=== PATIENT | male | born 1970 | race Caucasian/White ===

== ENCOUNTER 2018-03-11 18:25 | Emergency (ER) | payer BC ==
[~2018-03-11] VITALS: Ht 165.1 cm; Wt 73.0 kg
[2018-03-11 18:27] VITALS: Ht 165.1 cm; Wt 73.0 kg
[2018-03-11 20:15] VITALS: BP 128/78
== END 2018-03-11 20:15 | disposition home or self-care (01) ==
LOC: ED 18:25
DX: S62.336A Displaced fracture of neck of fifth metacarpal bone, right hand, initial encounter for closed fracture (principal); V19.49XA Pedal cycle driver injured in collision with other motor vehicles in traffic accident, initial encounter; Y93.I9 Activity, other involving external motion; Y92.89 Other specified places as the place of occurrence of the external cause; Y99.8 Other external cause status

== ENCOUNTER 2020-05-14 10:58 | Emergency (ER) | payer BC ==
[~2020-05-14] VITALS: Ht 165.1 cm; Wt 74.8 kg
[2020-05-14 10:59] VITALS: Ht 165.1 cm; Wt 74.8 kg
[2020-05-14 11:55] LABS: BASOPHIL % 0.6 % (0-2); PLATELET COUNT 257 x10^3mcL (130-400); RED CELL DISTRIBUTION WIDTH 12.8 % (11.5-14.5)
[2020-05-14 12:24] LABS: CALCIUM 8.6 mg/dL (8.5-10.1); CARBON DIOXIDE 25.7 mmol/L (21-32); CHLORIDE SERUM 101 mmol/L (98-107); CREATININE SERUM 1.2 mg/dL (0.7-1.3); GFR1 > 60 mL/min; GLUCOSE SERUM 184 mg/dL (74-106); POTASSIUM SERUM 3.9 mmol/L (3.5-5.1); SODIUM SERUM 137 mmol/L (136-145)
[2020-05-14 12:29] LABS: ALBUMIN 3.9 g/dL (3.4-5.0); ALKALINE PHOSPHATASE 84 U/L (46-116); ALT/SGPT 37 U/L (16-63); AST/SGOT 42 U/L (15-37); BILIRUBIN TOTAL 0.51 mg/dL (0.20-1.00); MAGNESIUM 2.1 mg/dL (1.8-2.4); TOTAL PROTEIN, SERUM 7.5 g/dL (6.4-8.2)
[2020-05-14 15:00] VITALS: BP 127/86
== END 2020-05-14 15:00 | disposition home or self-care (01) ==
LOC: ED 10:58
PROVIDERS: Emergency Medicine
DX: F10.20 Alcohol dependence, uncomplicated (principal)
CPT/HCPCS: G0480; J2060; J2405; J3411; J3490